=== PATIENT | female | born 1960 | race African-American/Black ===

== ENCOUNTER → 2017-06-11 | Outpatient (CLI) | payer OTHER ==
--- NOTE | 2017-06-11 10:34 | RAD ---
Exam performed:3 views left shoulder and lumbosacral spine Indication:Disability determination, chronic left shoulder pain and back pain Date of service:06/11/17. Comparison:None available 3 views left shoulder findings: AP radiographs of the shoulder in internal and external rotation as well as a Y-view reveal the osseous structures to be intact and well aligned. The joint space is well-preserved. The articular margins are smooth. Impression: No acute findings seen in the left shoulder End impression Lumbosacral spine findings: AP and lateral radiographs of the lumbosacral spine are obtained .Grade 1 anterlisthesis L4 over L5, the remainder alignment is preserved .The vertebral body heights are maintained. There is narrowing of L4-5 and L5-S1 intervertebral disc spaces . The pedicles are intact. Facet hypertrophic changes are noted in the lower lumber spine .As visualized, the sacroiliac joints appear unremarkable. Impression: Grade 1 anterolisthesis of L4 over L5 with degenerative disc disease at L4-5 and L5-S1.
--- NOTE | 2017-06-11 10:48 | RAD ---
Indication chronic back pain. Disability determination. AP and lateral views of the lumbar spine were obtained. No prior imaging of the lumbar spine is available. Vertebral height is relatively well maintained. There is very slight disc space narrowing at L4-5 and L5-S1. There is spondylolisthesis of approximately 12 mm at L4-5. An acute bony finding is not seen. IMPRESSION: Chronic changes. No acute finding seen
== END | disposition home or self-care (01) ==
LOC: RAD 09:21
PROVIDERS: ATTEND Surgery
DX: M43.16 Spondylolisthesis, lumbar region (principal); G89.29 Other chronic pain; M51.36 Other intervertebral disc degeneration, lumbar region; M51.37 Other intervertebral disc degeneration, lumbosacral region; M25.511 Pain in right shoulder; M25.512 Pain in left shoulder
CPT/HCPCS: 72100; 73030